=== PATIENT | female | born 1980 | race Caucasian/White ===

== ENCOUNTER 2019-07-08 05:53 | Emergency (ER) | payer OTHER ==
[~2019-07-08] VITALS: Ht 172.7 cm; Wt 72.7 kg
[2019-07-08 06:00] VITALS: BP 166/105
[2019-07-08] MEDS ORDERED: DIAZ-351 PO (06:41)
[2019-07-08] MEDS ORDERED: CYCL-1 PO (06:41)
[2019-07-08 07:19] LABS: ALANINE AMINOTRANSFERASE 19 U/L (12-78); ALBUMIN 3.8 G/DL (3.4-5.0); ALBUMIN/GLOBULIN RATIO 1.2 (1.1-1.5); ALKALINE PHOSPHATASE 65 IU/L (46-116); ANION GAP 5 (8-16); ASPARTATE AMINO TRANSFERASE 18 U/L (10-37); BILIRUBIN,TOTAL 0.3 MG/DL (0.1-1.0); BLOOD UREA NITROGEN 12 MG/DL (7-18); BUN/CREATININE RATIO 16.2 (6.6-38.0); CHLORIDE 108 MMOL/L (99-107); CREATININE 0.74 MG/DL (0.40-0.90); GLUCOSE 84 MG/DL (70-104); POTASSIUM 3.7 MMOL/L (3.5-5.1); SODIUM 143 MMOL/L (135-145); eGFR 88 ML/MIN
== END 2019-07-08 08:34 | disposition home or self-care (01) ==
LOC: ER 05:54
DX: G24.9 Dystonia, unspecified (principal); M62.838 Other muscle spasm; Z79.899 Other long term (current) drug therapy
CPT/HCPCS: 36415; 80053; 82948; 84443; 99283